=== PATIENT | male | born 1975 ===

== ENCOUNTER 2021-01-26 16:43 | Emergency (ER) | payer SELFPAY ==
[2021-01-26 19:54] VITALS: BP 103/71
--- NOTE | 2021-01-26 20:00 | Emergency Department Report ---
ED Extremity Problem HPI - General Chief complaint: Extremity Injury, Lower Stated complaint: (L)SWOLLEN KNEE/ANKLE Time Seen by Provider: 01/26/21 19:55 Source: patient Mode of arrival: Ambulatory Limitations: No Limitations - History of Present Illness Initial comments: Patient is a 45-year-old male who presents emergency room complaints of joint pain. He states he has had pain in his right foot for approximately 2 days. He states he has had pain in his left knee for approximately a week. he denies any fall or injury. He states occasionally it feels like it swells. He denies any swelling down each leg. He denies any redness or increased warmth. He denies any numbness or weakness. He is ambulatory. He reports that due to his joint pain he had to call off work and reports that he needs a work excuse. No past medical history. No allergies to medications. He states he has not seen a primary care doctor in a few years. - Related Data Previous Rx's Medication Instructions Recorded Last Taken Type Diclofenac Sodium [Voltaren 1 applicatio TP BID #50 gel..gram. 01/26/21 Unknown Rx Arthritis Pain] Meloxicam [Mobic] 7.5 mg PO QDAY PRN #10 tablet 01/26/21 Unknown Rx Allergies Allergy/AdvReac Type Severity Reaction Status Date / Time No Known Allergies Allergy Unverified 01/26/21 19:51 ED Review of Systems ROS: Stated complaint: (L)SWOLLEN KNEE/ANKLE Other details as noted in HPI Comment: All other systems reviewed and negative ED Past Medical Hx - Past Medical History Previous Medical History?: No - Surgical History Past Surgical History?: No - Medications Home Medications: Home Medications Medication Instructions Recorded Confirmed Last Taken Type Diclofenac Sodium [Voltaren 1 applicatio TP BID #50 gel..gram. 01/26/21 Unknown Rx Arthritis Pain] Meloxicam [Mobic] 7.5 mg PO QDAY PRN #10 tablet 01/26/21 Unknown Rx ED Physical Exam - General Limitations: No Limitations General appearance: alert, in no apparent distress - Head Head exam: Present: atraumatic, normocephalic - Eye Eye exam: Present: normal appearance - ENT ENT exam: Present: mucous membranes moist - Respiratory Respiratory exam: Absent: respiratory distress, accessory muscle use - Extremities Exam Extremities exam: Present: other (mild ttp to the medial right foot overlying a bony prominence, mild ttp to the left medial knee, no posterior knee ttp, FROM of the BLE, no deformities, no edema, no erythema, no calf ttp bilaterally, no skin changes, neurovascularly intact) - Neurological Exam Neurological exam: Present: alert, oriented X3 - Psychiatric Psychiatric exam: Present: normal affect, normal mood - Skin Skin exam: Present: warm, dry, intact ED Course Vital Signs 01/26/21 19:53 Temperature 98.8 F Pulse Rate 88 Respiratory 14 Rate Blood Pressure 103/71 [Right] O2 Sat by Pulse 100 Oximetry ED Medical Decision Making - Medical Decision Making Patient is a 45-year-old male who presents emergency room complaints of joint pain. He states he has had pain in his right foot for approximately 2 days. He states he has had pain in his left knee for approximately a week. he denies any fall or injury. He states occasionally it feels like it swells. He denies any swelling down each leg. He denies any redness or increased warmth. He denies any numbness or weakness. He is ambulatory. He reports that due to his joint pain he had to call off work and reports that he needs a work excuse. No past medical history. No allergies to medications. He states he has not seen a primary care doctor in a few years. VSS. On exam: mild ttp to the medial right foot overlying a bony prominence, mild ttp to the left medial knee, no posterior knee ttp, FROM of the BLE, no deformities, no edema, no erythema, no calf ttp bilaterally, no skin changes, neurovascularly intact. Patient has had no acute trauma. He has no signs of infection or cellulitis or septic joint. No clinical signs of acute gout flare. No clinical signs of DVT or arterial occlusion. Patient given prescription for medication. Advised patient Please use medication as prescribed as needed. May use ice for 15 minutes at a time, rest, elevation of the legs. Follow-up with orthopedic doctor. Follow-up with your primary care doctor. Return to emergency room for any new or worsening symptoms. Critical care attestation.: If time is entered above; I have spent that time in minutes in the direct care of this critically ill patient, excluding procedure time. ED Disposition Clinical Impression: Joint pain Qualifiers: Joint pain location: unspecified Qualified Code(s): M25.50 - Pain in unspecifie d joint Disposition: DC-01 TO HOME OR SELFCARE Is pt being admited?: No Does the pt Need Aspirin: No Condition: Stable Instructions: Joint Pain, [id number] Additional Instructions: Please use medication as prescribed as needed. May use ice for 15 minutes at a time, rest, elevation of the legs. Follow-up with orthopedic doctor. Follow-up with your primary care doctor. Return to emergency room for any new or worsening symptoms. Prescriptions: Meloxicam [Mobic] 7.5 mg PO QDAY PRN #10 tablet PRN Reason: pain Diclofenac Sodium [Voltaren Arthritis Pain] 1 applicatio TP BID #50 gel..gram. Referrals: ARTHUR ROBIN MD [Staff Physician] - 3-5 Days [facility] [Provider Group] - 3-5 Days CHARLY REYES MD [Staff Physician] - 3-5 Days [facility] [Provider Group] - 3-5 Days Forms: Work/School Release Form(ED) Time of Disposition: 19:58 Print Language: POLISH
== END 2021-01-26 20:16 | disposition home or self-care (01) ==
LOC: ED 16:43
DX: M79.671 Pain in right foot (principal)
CPT/HCPCS: 99281